=== PATIENT | female | born 1960 | race African-American/Black ===

== ENCOUNTER → 2016-07-03 | Outpatient (CLI) | payer MEDICARE, OTHER ==
[2015-08-26 11:00] VITALS: BP 118/63
[~2016-07-03] MED LIST: ASPI-482 PO; ATOR40TA59 PO; GABA600T PO; OXYC-323 PO; SUCR1TAB29 PO; TRAZ50TA15 PO
[2016-07-03 10:52] LABS: CHOLESTEROL/HDL RATIO 4.2
== END | disposition home or self-care (01) ==
LOC: LAB 09:53
PROVIDERS: ATTEND Internal Medicine Cardiovascular Disease
DX: E78.5 Hyperlipidemia, unspecified (principal)
CPT/HCPCS: 36415; 80061

== ENCOUNTER → 2016-11-03 | Outpatient (CLI) | payer MEDICARE, OTHER ==
[2015-08-26 11:00] VITALS: BP 118/63
[~2016-11-03] MED LIST changes: +REGADENOSON 0.4 MG/5 ML DISP.SYRIN. IV ONE; -SUCR1TAB29 PO; +SUCR1TAB35 PO
--- NOTE | 2016-11-03 12:43 | RAD ---
APPROVED REPORT Test Type: Pharmacological Stress Nurse/Tech: Ana Lilia Zuñiga R.N. Test Indications: neurocardiogenic syncope Cardiac History: hypotension, pacemaker Medications: See Electronic Medical Record Medical History: See Electronic Medical Record Resting ECG: NSR Resting Heart Rate: 64 bpm Resting Blood Pressure: 121/69mmHg Pretest Chest Pain: No chest pain Nurse/Tech Notes S1S2, lungs sound clear Consent: The procedure was explained to the patient in lay terms. Informed consent was witnessed. Marcin eout was entered into [facility]. History and Stress Test performed by Ana Lilia Zuñiga R.N. Pharm. Details Pharmacologic stress testing was performed using 0.4mg per 5ml of regadenoson given intravenously ove r 7-10 seconds. Stress Symptoms Dyspnea POST EXERCISE Reason for Termination: Infusion complete Max HR: 135 bpm Max Blood Pressure: 119/72mmHg Blood Pressure response to exercise: Normal blood pressure response during stress. Chest Pain: No. Arrhythmia: No. ST Change: No. INTERPRETATION Stress EKG Conclusion: Baseline EKG showed sinus rhythm. No ischemic changes at peak stress. No arr hythmias. Imaging Protocol IMAGE PROTOCOL: Rest Tc-99m/stress Tc-99m 1 day Rest: Stress: Viability: Radiopharm.Tc99m RirpuwjqsQd80r Sestamibi Dose11.1mCi 33.4mCi Duration 15min. 10min. Img Date 11/03/2016 11/03/2016 Inj-Img Ogle26jma. 60min. Rest Admin Site:IV - Right AntecubitalAdministrator:RT Tirso (R)(N) Stress Admin Site: IV - Right AntecubitalAdministrator: GARTH Manning STRESS DATA End Diast. Vol.63.0mlAv. Heart Rate79.0bpm End Syst. Vol.13.0mlCO Index BSA4.0L/min Myocardial Imig717.0gEject. Cefqwgux27.0% Stress Rates Pk. Fill Rate4.64EDV/secLVtime Pk. Fill 220.24msec Pk. Empty Rate5.21ESV/secLVtime Pk. Zbgsa668.89msec 04/18 Pk. Fill1.20EDV/sec Stress Scores Regional WT0.00Summed WT2.00 Regional WM0.00Summed WM3.00 Study quality was good. Left Ventricular size was Normal at Rest and Stress. Lung uptake was Normal. Left Ventricular ejection fraction is 79%. The rest and stress images show normal perfusion, normal contraction and thickening. LV Perf. Quant 17 Seg. SSS0.00 17 Seg. SRS0.00 17 Seg. SDS0.00 Stress Defect Extent (% LAD)0.00Rest Defect Extent (% LAD)0.00Rev. Defect Extent (% LAD)0.00 Stress Defect Extent (% LCX) 0.00Rest Defect Extent (% LCX)0.00Rev. Defect Extent (% LCX)0.00 Stress Defect Extent (% RCA)0.00Rest Defect Extent (% RCA)0.00Rev. Defect Extent (% RCA)0.00 Stress Defect Extent (% POLA)0.00Rest Defect Extent (% POLA)0.00Rev. Defect Extent (% POLA)0.00 Conclusion 1. Regadenoson cardioisotope stress test did not show any evidence of ischemia or infarct. 2. Normal left ventricular systolic function with ejection fraction calculated at 79%. 3. Low risk for cardiac events.
== END | disposition home or self-care (01) ==
LOC: NM 08:36
PROVIDERS: ATTEND Internal Medicine Cardiovascular Disease
DX: R55 Syncope and collapse (principal)
CPT/HCPCS: 78452; 93017; 96374; 96375; 96376; A9500; J2785

== ENCOUNTER 2017-03-27 21:30 | Emergency (ER) | payer MEDICARE, OTHER ==
[~2017-03-27 21:30] MED LIST changes: -REGADENOSON 0.4 MG/5 ML DISP.SYRIN. IV ONE
--- NOTE | 2017-03-27 22:57 | EKG ---
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
[2017-03-27] MEDS ORDERED: IV NORMAL SALINE 1000ML BAG 1,000 ML IV ONE (23:00)
[2017-03-27 23:18] LABS: BASO % 1 % (0-3); EOS % 2 % (0-3); HEMATOCRIT 44.3 % (36.0-47.0); HEMOGLOBIN 14.4 g/dL (12.0-15.5); LYMPH # 3.1 x10^3/uL (1.0-4.8); LYMPH % 42 % (24-48); MEAN CORPUSCULAR HEMOGLOBIN 29 pg (25-35); MEAN CORPUSCULAR HGB CONC 33 g/dL (31-37); MEAN CORPUSCULAR VOLUME 87 fL (79-100); MONO % 8 % (0-9); NEUT % 48 % (31-73); PLATELET COUNT 221 x10^3/uL (140-400); RED BLOOD COUNT 5.07 x10^6/uL (3.50-5.40); RED CELL DISTRIBUTION WIDTH 14.7 % (11.5-14.5); WHITE BLOOD COUNT 7.5 x10^3/uL (4.0-11.0)
[2017-03-27 23:30] LABS: CALCIUM 8.7 mg/dL (8.5-10.1); CREATININE 0.8 mg/dL (0.6-1.0); GFR 89.1; POTASSIUM 4.4 mmol/L (3.5-5.1)
[2017-03-27 23:36] LABS: ALBUMIN 3.7 g/dL (3.4-5.0); ALBUMIN/GLOBULIN RATIO 1.1 (1.0-1.7); TOTAL BILIRUBIN 0.2 mg/dL (0.2-1.0); TOTAL PROTEIN 7.1 g/dL (6.4-8.2)
[2017-03-28 00:01] LABS: BILIRUBIN,URINE NEGATIVE (NEG); GLUCOSE,URINE NEGATIVE (NEG); NITRITE,URINE NEGATIVE (NEG); PH,URINE 6.5; PROTEIN,URINE NEGATIVE (NEG-TRACE); UROBILINOGEN,URINE 0.2 mg/dL (0.2 mg/dL)
[2017-03-28 00:15] LABS: RBC,URINE OCC /HPF (0-2)
[2017-03-28 00:16] LABS: BACTERIA,URINE MANY /HPF (0-FEW); SQUAMOUS EPITHELIAL CELL,UR FEW /LPF; WBC,URINE 20-40 /HPF (0-4)
[2017-03-28 01:23] VITALS: BP 164/131
[2017-03-28] MEDS ORDERED: CIPR250T PO ×2 (01:29→01:34)
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
== END 2017-03-28 01:43 | disposition home or self-care (01) ==
LOC: ER 21:30
DX: N30.00 Acute cystitis without hematuria (principal); R42 Dizziness and giddiness; Z95.0 Presence of cardiac pacemaker; Z88.8 Allergy status to other drugs, medicaments and biological substances
CPT/HCPCS: 36415; 80053; 81001; 82550; 83735; 83880; 84443; 84484; 85025; 87086; 93005; 96360; 99285; J7030

== ENCOUNTER → 2017-08-09 | Outpatient (CLI) | payer MEDICARE, OTHER | END | disposition home or self-care (01) | LOC: ECHO 09:40 | DX: R55 Syncope and collapse (principal); E78.5 Hyperlipidemia, unspecified; G43.909 Migraine, unspecified, not intractable, without status migrainosus | CPT/HCPCS: 93306 ==

== ENCOUNTER 2019-05-08 18:08 | Observation (INO) | payer MEDICARE, MEDICAID ==
[~2019-05-08] VITALS: Ht 172.7 cm; Wt 101.8 kg
[~2019-05-08 18:08] MED LIST changes: +CIPR250T PO; -OXYC-323 PO; +OXYC1TAB15 PO; +TRAZ-118 PO; -TRAZ50TA15 PO
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
[2019-05-08 19:14] LABS: BASO % 1 % (0-3); EOS # 0.2 x10^3/uL (0.0-0.7); EOS % 3 % (0-3); HEMATOCRIT 40.9 % (36.0-47.0); HEMOGLOBIN 13.4 g/dL (12.0-15.5); LYMPH # 3.4 x10^3/uL (1.0-4.8); LYMPH % 59 % (24-48); MEAN CORPUSCULAR HEMOGLOBIN 29 pg (25-35); MEAN CORPUSCULAR HGB CONC 33 g/dL (31-37); MEAN CORPUSCULAR VOLUME 88 fL (79-100); MONO # 0.5 x10^3/uL (0.0-1.1); MONO % 9 % (0-9); NEUT # 1.7 x10^3/uL (1.8-7.7); NEUT % 29 % (31-73); PLATELET COUNT 207 x10^3/uL (140-400); RED BLOOD COUNT 4.66 x10^6/uL (3.50-5.40); RED CELL DISTRIBUTION WIDTH 14.7 % (11.5-14.5); WHITE BLOOD COUNT 5.8 x10^3/uL (4.0-11.0)
[2019-05-08] MEDS ORDERED: ASPIRIN CHEWABLE 81 MG TABLET. PO ONE (19:15)
[2019-05-08] MEDS: NITROGLYCERIN SUBLINGUAL 0.4 MG BOTTLE OF 25. SL PRN ×3 (19:27→19:49)
[2019-05-08 19:36] LABS: CALCIUM 8.9 mg/dL (8.5-10.1); CREATININE 0.9 mg/dL (0.6-1.0); GFR 77.3; POTASSIUM 3.7 mmol/L (3.5-5.1)
--- NOTE | 2019-05-08 19:36 | RAD ---
EXAM: AP View of the chest DATE: 05/08/2019 7:07 PM INDICATION: Chest pain COMPARISON: No Prior FINDINGS: The heart is not enlarged. Mediastinal and hilar contours are normal. No focal parenchymal airspace opacity. No pleural effusion or pneumothorax. Cardiac generator pack obscures a portion of the right chest with leads projecting over the right atrium and ventricle. IMPRESSION: 1. No radiographic evidence for acute cardiopulmonary process. Electronically signed by: Rizwan Smith MD (05/08/2019 7:33 PM) [facility]
[2019-05-08 19:42] LABS: ALBUMIN 3.6 g/dL (3.4-5.0); ALBUMIN/GLOBULIN RATIO 1.1 (1.0-1.7); MAGNESIUM 1.9 mg/dL (1.8-2.4); TOTAL BILIRUBIN 0.2 mg/dL (0.2-1.0)
[2019-05-08 19:57] LABS: BILIRUBIN,URINE NEGATIVE (NEG); CLARITY,URINE CLEAR; COLOR,URINE YELLOW; NITRITE,URINE NEGATIVE (NEG); PROTEIN,URINE NEGATIVE (NEG-TRACE)
[2019-05-08 20:03] LABS: BACTERIA,URINE 0 /HPF (0-FEW); RBC,URINE 0 /HPF (0-2); SQUAMOUS EPITHELIAL CELL,UR MOD /LPF
[2019-05-08] MEDS ORDERED: NITROGLYCERIN OINT 1 GM PACKET. TP ONE (21:00)
[2019-05-08] MEDS ORDERED: KETOROLAC 30 MG/ML VIAL. IVP ONE (21:15)
[2019-05-08] MEDS ORDERED: ACETAMINOPHEN 325 MG TABLET. PO PRN (21:30)
[2019-05-08] MEDS ORDERED: ONDANSETRON PF 4 MG/2 ML VIAL. IV PRN ×2 (21:30→22:00)
[2019-05-08] MEDS ORDERED: MORPHINE SULFATE 2 MG/ML VIAL. IV PRN (21:30)
[2019-05-08] MEDS ORDERED: traZODone 50 MG TABLET. PO PRN (22:00)
[2019-05-08] MEDS ORDERED: SUCRALFATE 1 GM TABLET. PO PRN (22:00)
[2019-05-08] MEDS ORDERED: NORT25CA PO (22:01)
[2019-05-08] MEDS ORDERED: BUPR150T6 PO (22:01)
[2019-05-08] MEDS ORDERED: OMEP40CA45 PO (22:01)
[2019-05-08] MEDS ORDERED: TOPI50TA8 PO (22:01)
[2019-05-08] MEDS ORDERED: METF750T39 PO (22:01)
[2019-05-08] MEDS ORDERED: METO25TA4 PO (22:01)
[2019-05-08] MEDS ORDERED: POTASSIUM CHLORIDE 20 MEQ TABLET.ER. PO ONE (22:15)
[2019-05-08] MEDS ORDERED: GABAPENTIN 300 MG CAPSULE. PO SCH (22:15)
[2019-05-08] MEDS ORDERED: DEXTROSE 50% 25 GM / 50ML DISP.SYRIN. IV PRN (22:15)
[2019-05-08] MEDS ORDERED: IV DEXTROSE 5% 250 ML BAG. IV PRN (22:15)
[2019-05-08] MEDS ORDERED: ATORVASTATIN CALCIUM 40 MG TABLET. PO SCH (22:15)
[2019-05-08] MEDS ORDERED: NORTRIPTYLINE 25 MG CAPSULE PO SCH (22:15)
[2019-05-08] MEDS: METOPROLOL TART IMMED RELEASE 25 MG TABLET. PO SCH (22:15)
[2019-05-08] MEDS ORDERED: MAGNESIUM SULFATE 1GM 100 ML IV ONE (22:30)
[2019-05-08 22:59] VITALS: BP 154/89
[2019-05-09] MEDS: ACETAMINOPHEN 325 MG TABLET. PO PRN ×2 (02:55→10:06)
[2019-05-09 03:09] VITALS: BP 140/80
--- NOTE | 2019-05-09 04:30 | NUR ---
patient arrived to unit at approx 2250 accompanied by oil well fishing tool technician and pt daughter. VS stable, Assessment complete. Patient resting comfortably on RA. When reviewing patient meds pt stated that she only takes the Topamax as needed, metoprolol once a day instead of twice, and doesn't take atorvastatin anymore. Instead of atorvastatin she takes rosuvastatin. Will confirm with physician in AM. Pt refused flu shot. Patient state that she fell approx 5 days ago at home. Encouraged patient to call for assistance before ambulating, call light in reach, bed in low locked position. Will continue to monitor.
[2019-05-09 05:04] LABS: BASO % 0 % (0-3); EOS # 0.2 x10^3/uL (0.0-0.7); EOS % 4 % (0-3); HEMATOCRIT 40.1 % (36.0-47.0); HEMOGLOBIN 13.1 g/dL (12.0-15.5); LYMPH # 2.8 x10^3/uL (1.0-4.8); LYMPH % 55 % (24-48); MEAN CORPUSCULAR HEMOGLOBIN 29 pg (25-35); MEAN CORPUSCULAR HGB CONC 33 g/dL (31-37); MEAN CORPUSCULAR VOLUME 88 fL (79-100); MONO # 0.5 x10^3/uL (0.0-1.1); MONO % 11 % (0-9); NEUT # 1.5 x10^3/uL (1.8-7.7); NEUT % 30 % (31-73); PLATELET COUNT 201 x10^3/uL (140-400); RED BLOOD COUNT 4.57 x10^6/uL (3.50-5.40); RED CELL DISTRIBUTION WIDTH 14.5 % (11.5-14.5); WHITE BLOOD COUNT 5.1 x10^3/uL (4.0-11.0)
[2019-05-09 05:37] LABS: ALBUMIN 3.4 g/dL (3.4-5.0); ALBUMIN/GLOBULIN RATIO 1.2 (1.0-1.7); CALCIUM 8.8 mg/dL (8.5-10.1); CREATININE 0.8 mg/dL (0.6-1.0); GFR 88.5; POTASSIUM 4.5 mmol/L (3.5-5.1); TOTAL BILIRUBIN 0.3 mg/dL (0.2-1.0); TOTAL PROTEIN 6.3 g/dL (6.4-8.2)
[2019-05-09 07:00] VITALS: BP 120/86
--- NOTE | 2019-05-09 07:14 | EKG ---
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
[2019-05-09] MEDS ORDERED: PANTOPRAZOLE 40 MG TABLET.DR. PO SCH (07:30)
[2019-05-09] MEDS: INSULIN LISPRO 300 UNITS/3 ML VIAL. SQ SCH ×2 (07:30→11:30)
[2019-05-09] MEDS ORDERED: ASPIRIN ENTERIC COATED 81 MG TABLET.DR. PO SCH (08:00)
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
[2019-05-09] MEDS: TOPIRAMATE 25 MG TABLET. PO SCH ×2 (08:19→09:00)
[2019-05-09 08:39] LABS: CHOLESTEROL/HDL RATIO 4.5
[2019-05-09] MEDS ORDERED: buPROPion XL 150 MG TAB.ER.24H. PO SCH (09:00)
[2019-05-09 11:00] VITALS: BP 143/89
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
[2019-05-09] MEDS ORDERED: LIDOCAINE (700MG/PATCH) PATCH. TD SCH (12:00)
[2019-05-09 12:12] VITALS: BP 143/89
[2019-05-09] MEDS: METOPROLOL TART IMMED RELEASE 25 MG TABLET. PO SCH (12:12)
--- NOTE | 2019-05-09 15:02 | NUR ---
Discharge Note: JHONY KHAN Discharge instructions and discharge home medications reviewed with Patient and a copy given. All questions have been answered and understanding verbalized. The following instructions and handouts were given: Stress test instructions Discontinued lines and drains: intact. 22 R FA Patient discharged to Home with self care
--- NOTE | 2019-05-09 19:05 | DS ---
DATE OF DISCHARGE: 05/09/2019 ADMISSION DIAGNOSIS: Chest pain. DISCHARGE DIAGNOSES: Atypical chest pain, previous history of coronary artery disease and permanent pacemaker 2 years ago. HOSPITAL COURSE: The patient is a pleasant 58-year-old female who presented with chest pain. She was admitted. We checked serial enzymes, serial EKGs, consulted Cardiology. Today, I saw her and examined her. Her heart tones were normal. Lungs were clear. She was alert and oriented. Extremities have no edema. We plan to discharge if okay with Cardiology. DISPOSITION: Home. ACTIVITY: As tolerated. DIET: Cardiac. MEDICATIONS: Please see the MRAD. TOTAL TIME: 34 minutes. TONY MALDONADO DO DR: CLIFTON/severo JOB#: [id number] / [id number]
[2019-05-09] MEDS ORDERED: PATCH REMOVAL. MC SCH (21:00)
== END 2019-05-09 15:04 | disposition home or self-care (01) ==
LOC: ER 18:08 → 2 NORTH 22:01
PROVIDERS: ADMIT Internal Medicine; ATTEND Internal Medicine
DX: R55 Syncope and collapse (principal); R00.1 Bradycardia, unspecified; I20.0 Unstable angina; R07.89 Other chest pain; I95.9 Hypotension, unspecified; Z95.0 Presence of cardiac pacemaker; Z86.711 Personal history of pulmonary embolism
CPT/HCPCS: 36415; 71045; 80053; 80061; 81001; 82962; 83735; 83880; 84484; 85025; 87086; 93005; 96365; 96375; 99284; G0378; J1815; J1885; J3475; G0379

== ENCOUNTER → 2019-05-13 | Outpatient (CLI) | payer MEDICARE, MEDICAID ==
[2019-05-09 12:12] VITALS: BP 143/89
[~2019-05-13] MED LIST changes: +BUPR150T6 PO; +METF750T39 PO; +METO25TA4 PO; +NORT25CA PO; +OMEP40CA45 PO; +TOPI50TA8 PO
--- NOTE | 2019-05-13 11:37 | RAD ---
MR#: [id number] Date of Study: 05/13/2019 Ordering Physician: HUGO PEREZ, Referring Physician: NURIA SERVIN Tech: BILLY Hagen, ARRT (R) (N) APPROVED REPORT Test Type: Exercise Stress Nurse/Tech: ROBERT Delgado Test Indications: chest pain Cardiac History: chest pain, PPM, syncope, HTN , See Electronic Medical Record Medications: See Electronic Medical Record Medical History: See Electronic Medical Record Resting ECG: AV paced Resting Heart Rate: 76 bpm Resting Blood Pressure: 114/74mmHg Pretest Chest Pain: yes Nurse/Tech Notes PPM noted on right chest, AV paced per monitor, c/o chest pressure that radiates down her left arm an d to her left shoulder blade, pt states this has been going on for quite some time, lungs CTA. Consent: The procedure was explained to the patient in lay terms. Informed consent was witnessed. Marcin eout was entered into [employer]. History and Stress Test performed by RT Amanda (Yuliya) (N) Stress Symptoms Pt complained of chest pressure and SOA, in addition to fatigue.No chest pain or symptoms. POST EXERCISE Reason for Termination: Reached target heart rate Target HR: 136 Max HR: 139 bpm Exercise duration: 5:29 min:sec, 2 Stage Exercise capacity: 5.7METs Max Blood Pressure: 154/82mmHg Blood Pressure response to exercise: Normal blood pressure response during stress. Heart Rate response to exercise: Normal heart rate response during stress Chest Pain: Yes. essentially unchanged pain description Arrhythmia: No. ST Change: No. difficult to interpret due to artifact INTERPRETATION Stress EKG Conclusion: AV paced. Non-specific st/t changes. Non-diagnostic due to pacing. Imaging Protocol IMAGE PROTOCOL: Rest Tc-99m/stress Tc-99m 1 day Rest: Stress: Viability: Radiopharm.Tc99m GsmkxhgjhJh06m Sestamibi Oarc90iRn 33mCi Img Date 05/13/2019 05/13/2019 Inj-Img Dbps33mhp. 60min. Rest Admin Site:IV - Right AntecubitalAdministrator:Mani Hart, RT (R)(N) Stress Admin Site: IV - Right AntecubitalAdministrator: RT Amanda (R)(N) STRESS DATA End Diast. Vol.39.0mlAv. Heart Rate87.0bpm End Syst. Vol.3.0mlCO Index BSA3.2L/min Myocardial Mass90.0gEject. Fxcycujd40.0% Stress Rates Pk. Fill Rate1.27EDV/secLVtime Pk. Fill 129.06msec Pk. Empty Rate4.18ESV/secLVtime Pk. Klxhu687.15msec 04/18 Pk. Fill1.33EDV/sec Stress Scores Regional WT1.00Summed WT2.00 Regional WM0.00Summed WM1.00 The rest and stress images show normal perfusion, normal contraction and thickening. LV Perf. Quant 17 Seg. SSS0.00 17 Seg. SRS0.00 17 Seg. SDS0.00 Stress Defect Extent (% LAD)0.00Rest Defect Extent (% LAD)0.00Rev. Defect Extent (% LAD)0.00 Stress Defect Extent (% LCX) 0.00Rest Defect Extent (% LCX)0.00Rev. Defect Extent (% LCX)0.00 Stress Defect Extent (% RCA)0.00Rest Defect Extent (% RCA)0.00Rev. Defect Extent (% RCA)0.00 Stress Defect Extent (% POLA)0.00Rest Defect Extent (% POLA)0.00Rev. Defect Extent (% POLA)0.00 Other Information Quality:Average Risk Assessment: Low Risk Conclusion 1. No evidence of EKG changes with stress testing. 2. Normal perfusion at stress/rest. 3. Low risk study. 4. EF > 60%. Signed by : Phillip He, Electronically Approved : 05/13/2019 11:37:13
== END | disposition home or self-care (01) ==
LOC: NM 08:08
PROVIDERS: ATTEND Internal Medicine Cardiovascular Disease
DX: R06.02 Shortness of breath (principal); R53.83 Other fatigue; R07.9 Chest pain, unspecified; I10 Essential (primary) hypertension; Z95.0 Presence of cardiac pacemaker
CPT/HCPCS: 78452; 93017; A9500

== ENCOUNTER → 2020-02-12 | Outpatient (CLI) | payer OTHER, MEDICAID ==
--- NOTE | 2020-02-12 15:39 | CARD ---
MR#: [id number] Date of Study: 02/12/2020 Ordering Physician: HUGO SNYDER, Referring Physician: HUGO SNYDER, Tech: Carlene Rhaman APPROVED REPORT EXAM: Two-dimensional and M-mode echocardiogram with Doppler and color Doppler. Other Information Quality : AverageHR: 87bpm INDICATION Syncope RISK FACTORS Hyperlipidemia Diabetes 2D DIMENSIONS RVDd3.2 (2.9-3.5cm)Left Atrium(2D)3.0 (1.6-4.0cm) IVSd1.0 (0.7-1.1cm)Aortic Root(2D)3.3 (2.0-3.7cm) LVDd4.0 (3.9-5.9cm)LVOT Diameter2.1 (1.8-2.4cm) PWd1.2 (0.7-1.1cm)LVDs2.5 (2.5-4.0cm) FS (%) 37.0 %SV46.2 ml LVEF(%)67.5 (>50%) Aortic Valve AoV Peak Foreign.84.8cm/sAoV VTI16.0cm AO Peak GR.2.9mmHgLVOT Peak Foreign.71.4cm/s LVOT VTI 14.76cmAO Mean GR.2mmHg ROGER (VMAX)2.52zw5YEK (VTI)3.31cm2 Mitral Valve MV E Ildkpzmg66.2cm/sMV DECEL FAGW250gw MV A Xpiwlntu56.0cm/sMV XYI30vd E/A Ratio0.9MVA (PHT)2.41cm2 TDI E/Lateral E'6.1E/Medial E'7.3 Pulmonary Valve PV Peak Phoexxwh66.4cm/sPV Peak Grad.2mmHg Tricuspid Valve TR P. Lfbrwnbt189xd/sRAP OFEJLUZM0iuFa TR Peak Gr.89qsMeLUAU85uyAl Pulmonary Vein S1 Yndsqfqe70.6cm/sD2 Spionzud38.6cm/s PVa phcbeodw024eome LEFT VENTRICLE The left ventricle is normal size. There is normal left ventricular wall thickness. The left ventricu lar systolic function is normal. The Ejection Fraction is 60-65%. There is normal LV segmental wall m otion. Transmitral Doppler flow pattern is Grade I-abnormal relaxation pattern. RIGHT VENTRICLE The right ventricle is borderline dilated. There is normal right ventricular wall thickness. The righ t ventricular systolic function is normal. There is a pacemaker lead in the right ventricle. ATRIA The left atrium size is normal. There is a pacemaker lead seen in the right atrium. The right atrium size is normal. The interatrial septum is intact with no evidence for an atrial septal defect or mackay nt foramen ovale as noted on 2-D or Doppler imaging. AORTIC VALVE The aortic valve is thickened but opens well. Doppler and Color Flow revealed no significant aortic r egurgitation. There is no significant aortic valvular stenosis. Calculated aortic valve area is 3.35 cm2 with maximum pressure gradient of 4 mmHg and mean pressure gradient of 3 mmHg. MITRAL VALVE The mitral valve is normal in structure and function. There is no evidence of mitral valve prolapse. There is no mitral valve stenosis. Doppler and Color-flow revealed trace mitral regurgitation. TRICUSPID VALVE The tricuspid valve is normal in structure and function. Doppler and Color Flow revealed trace tricus pid regurgitation with an estimated PAP of 24 mmHg. There is no tricuspid valve stenosis. PULMONIC VALVE The pulmonic valve is not well visualized. Doppler and Color Flow revealed trace pulmonic valvular re gurgitation. GREAT VESSELS The aortic root is normal in size. The IVC is normal in size and collapses >50% with inspiration. PERICARDIAL EFFUSION There is no evidence of significant pericardial effusion. Critical Notification Critical Value: No <Conclusion> The left ventricular systolic function is normal. The Ejection Fraction is 60-65%. There is normal LV segmental wall motion. Transmitral Doppler flow pattern is Grade I-abnormal relaxation pattern. Pacer lead noted RA/RV. Trace mitral regurgitation. Trace tricuspid regurgitation with an estimated PAP of 24 mmHg. There is no evidence of significant pericardial effusion. Signed by : Hugo Snyder, Electronically Approved : 02/12/2020 15:39:08
== END ==
LOC: ECHO 09:07
PROVIDERS: ATTEND Internal Medicine Cardiovascular Disease
DX: R55 Syncope and collapse (principal); Z95.0 Presence of cardiac pacemaker
CPT/HCPCS: 93306

== ENCOUNTER 2020-06-13 20:20 | Emergency (ER) | payer OTHER, MEDICAID ==
[~2020-06-13] VITALS: Ht 170.2 cm; Wt 104.5 kg
[~2020-06-13 20:20] MED LIST changes: +BUPR150T21 PO; -BUPR150T6 PO
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
[2020-06-13 21:06] LABS: BASO % 1 % (0-3); EOS # 0.1 x10^3/uL (0.0-0.7); EOS % 2 % (0-3); HEMATOCRIT 45.1 % (36.0-47.0); HEMOGLOBIN 14.8 g/dL (12.0-15.5); LYMPH # 3.6 x10^3/uL (1.0-4.8); LYMPH % 51 % (24-48); MEAN CORPUSCULAR HEMOGLOBIN 29 pg (25-35); MEAN CORPUSCULAR HGB CONC 33 g/dL (31-37); MEAN CORPUSCULAR VOLUME 88 fL (79-100); MONO # 0.5 x10^3/uL (0.0-1.1); MONO % 7 % (0-9); NEUT # 2.7 x10^3/uL (1.8-7.7); NEUT % 39 % (31-73); PLATELET COUNT 207 x10^3/uL (140-400); RED BLOOD COUNT 5.14 x10^6/uL (3.50-5.40); RED CELL DISTRIBUTION WIDTH 14.1 % (11.5-14.5); WHITE BLOOD COUNT 7.1 x10^3/uL (4.0-11.0)
[2020-06-13 21:21] LABS: CALCIUM 8.8 mg/dL (8.5-10.1); CREATININE 1.2 mg/dL (0.6-1.0); GFR 55.3; POTASSIUM 4.7 mmol/L (3.5-5.1)
[2020-06-13] MEDS ORDERED: CONTRAST GIVEN. MC PRN (21:45)
[2020-06-13 21:48] LABS: PLT ESTIMATE ADEQUATE (ADEQUATE)
[2020-06-13 21:49] LABS: BURR CELLS FEW; OVALOCYTES OCC; TEAR DROP CELLS FEW
[2020-06-13 21:50] LABS: POIKILOCYTOSIS SLIGHT
--- NOTE | 2020-06-13 21:55 | RAD ---
Exam: CT Neck with contrast INDICATION: Neck swelling TECHNIQUE: Sequential axial images through the neck obtained following the administration of 60 mL of Omni 300 IV contrast. Sagittal and coronal reformatted images were reconstructed from the axial data and reviewed. Comparisons: None FINDINGS: Visualized intracranial structures are unremarkable. Globes intradural contents are normal. Visualize d portions of the paranasal sinuses and mastoid air cells are well-pneumatized. Cervical vasculature is patent. Nasopharynx, oropharynx, hypopharynx and larynx are unremarkable. Thyroid and salivary glands are within normal limits. No enlarged cervical lymph nodes are identified. A 6 cm nodule at the right upper lobe series 2 image 22. No suspicious osseous lesions or acute fractures. IMPRESSION: 1. No acute process identified within the neck. 2. A 6 cm nodule at the right upper lobe. 6 month follow-up chest CT is recommended to reassess. Exposure: One or more of the following in the visualized dose reduction techniques were utilized for this examination: 1. Automated exposure control 2. Adjustment of the MA and/or KV according to patient size 3. Use of iterative of reconstructive technique Electronically signed by: Layton Hodges MD (06/13/2020 9:52 PM) [facility]
[2020-06-13] MEDS ORDERED: INSULIN REGULAR 100 UNIT/ML 3ML VIAL. IV ONE (22:00)
[2020-06-13] MEDS ORDERED: IV NORMAL SALINE 1000ML BAG 1,000 ML IV ONE ×2 (22:00→23:00)
[2020-06-13] MEDS ORDERED: IOHEXOL 300 MG/ML 100ML VIAL. IV ONE (22:00)
[2020-06-13 23:29] VITALS: BP 154/76
--- NOTE | 2020-06-14 01:31 | EKG ---
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
[2020-06-16] MEDS ORDERED: TOPI50TA38 PO (17:03)
[2020-06-16] MEDS ORDERED: METO-239 PO (17:03)
[2020-06-16] MEDS ORDERED: ROSU20TA28 PO (17:03)
[2020-06-16] MEDS ORDERED: NORT25CA PO (17:03)
[2020-06-17] MEDS ORDERED: METF750T PO (09:44)
[2020-06-17] MEDS ORDERED: AMOX1TAB61 PO (15:33)
[2020-06-17] MEDS ORDERED: LINA5TAB PO (15:33)
--- NOTE | 2020-06-22 11:19 | EKG ---
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
== END 2020-06-13 23:58 | disposition home or self-care (01) ==
LOC: ER 20:20
DX: R60.0 Localized edema (principal); R73.9 Hyperglycemia, unspecified; M25.512 Pain in left shoulder; R91.1 Solitary pulmonary nodule; M54.2 Cervicalgia; I95.9 Hypotension, unspecified; Z95.0 Presence of cardiac pacemaker; Z98.890 Other specified postprocedural states; Z88.8 Allergy status to other drugs, medicaments and biological substances
CPT/HCPCS: 36415; 70491; 80048; 82962; 85025; 93005; 96361; 96374; 99285; J1815; J7030; Q9967

== ENCOUNTER → 2020-07-20 | Day surgery (SDC) | payer OTHER, MEDICAID ==
[~2020-07-20] MED LIST changes: +AMOX1TAB61 PO; +IV RINGERS,LACTATED 1000ML 1,000 ML IV SCH; +LIDOCAINE 2% PF 5 ML VIAL. ONE; +LINA5TAB PO; +METF750T PO; +METO-239 PO; +PROPOFOL 10 MG/ML (20ML) VIAL. IV ONE; +ROSU20TA28 PO; +TOPI50TA38 PO
[2020-07-20 14:30] VITALS: BP 143/94
== END | disposition home or self-care (01) ==
LOC: ENDOS 12:32
PROVIDERS: ATTEND Internal Medicine Gastroenterology
DX: Z12.11 Encounter for screening for malignant neoplasm of colon (principal); K64.0 First degree hemorrhoids; R10.13 Epigastric pain; K29.50 Unspecified chronic gastritis without bleeding; R93.3 Abnormal findings on diagnostic imaging of other parts of digestive tract; E66.9 Obesity, unspecified; E11.9 Type 2 diabetes mellitus without complications; F32.9 Major depressive disorder, single episode, unspecified; F41.9 Anxiety disorder, unspecified; Z86.010 Personal history of colon polyps; Z90.710 Acquired absence of both cervix and uterus; Z98.890 Other specified postprocedural states; Z79.899 Other long term (current) drug therapy; Z79.82 Long term (current) use of aspirin; Z79.84 Long term (current) use of oral hypoglycemic drugs; Z88.8 Allergy status to other drugs, medicaments and biological substances; Z20.822 Contact with and (suspected) exposure to COVID-19
CPT/HCPCS: 43235; 87426; G0105; J2704; 45378

== ENCOUNTER 2021-07-17 11:25 | Emergency (ER) | payer OTHER, MEDICAID ==
[~2021-07-17] VITALS: Ht 170.2 cm; Wt 98.0 kg
[~2021-07-17 11:25] MED LIST changes: -IV RINGERS,LACTATED 1000ML 1,000 ML IV SCH; -LIDOCAINE 2% PF 5 ML VIAL. ONE; -OMEP40CA45 PO; +OMEP40CA7 PO; -PROPOFOL 10 MG/ML (20ML) VIAL. IV ONE
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
[2021-07-17] MEDS ORDERED: IV NORMAL SALINE 500ML BAG 500 ML IV SCH (12:00)
[2021-07-17 12:03] LABS: BASO # 0.1 x10^3/uL (0.0-0.2); BASO % 1 % (0-3); EOS # 0.2 x10^3/uL (0.0-0.7); EOS % 2 % (0-3); HEMATOCRIT 46.2 % (36.0-47.0); HEMOGLOBIN 15.2 g/dL (12.0-15.5); LYMPH # 3.2 x10^3/uL (1.0-4.8); LYMPH % 34 % (24-48); MEAN CORPUSCULAR HEMOGLOBIN 30 pg (25-35); MEAN CORPUSCULAR HGB CONC 33 g/dL (31-37); MEAN CORPUSCULAR VOLUME 90 fL (79-100); MONO % 10 % (0-9); NEUT # 5.2 x10^3/uL (1.8-7.7); NEUT % 54 % (31-73); PLATELET COUNT 214 x10^3/uL (140-400); RED BLOOD COUNT 5.12 x10^6/uL (3.50-5.40); RED CELL DISTRIBUTION WIDTH 13.5 % (11.5-14.5); WHITE BLOOD COUNT 9.5 x10^3/uL (4.0-11.0)
[2021-07-17 12:25] LABS: ALBUMIN 3.5 g/dL (3.4-5.0); CALCIUM 9.1 mg/dL (8.5-10.1); CREATININE 1.2 mg/dL (0.6-1.0); GFR 54.9; POTASSIUM 4.7 mmol/L (3.5-5.1); TOTAL BILIRUBIN 0.5 mg/dL (0.2-1.0); TOTAL PROTEIN 7.1 g/dL (6.4-8.2)
--- NOTE | 2021-07-17 12:29 | RAD ---
XR CHEST 1V Clinical History: Reason: syncope WEAK AND FATIGUE / Spl. Instructions: / History: Technique: AP view of the chest was obtained at 07/17/2021 12:01 PM. Comparison: June 16, 2020. Findings: The cardiomediastinal silhouette is normal. The pulmonary vasculature is normal. The lungs and pleura l margins are clear. There is a right-sided dual-lead pacemaker. Impression: No evidence of an acute cardiopulmonary process. Electronically signed by: Mando Yang III, MD (07/17/2021 12:26 PM) [facility]
[2021-07-17 13:41] LABS: BACTERIA,URINE 0 /HPF (0-FEW); RBC,URINE 0 /HPF (0-2)
[2021-07-17] MEDS ORDERED: INSULIN REGULAR 100 UNIT/ML 3ML VIAL. IV ONE (17:00)
[2021-07-17 17:36] VITALS: BP 139/82
[2021-07-17] MEDS ORDERED: CARBAMIDE PEROXIDE 6.5% OTIC SOLUTION 15ML BOTTLE. AU ONE (17:45)
--- NOTE | 2021-07-17 18:17 | EKG ---
[facility] [address] [place] [address] Test Date: 2021-07-17 Test Time: 11:34:50 Pat Name: JHONY KHAN Department: Room: Gender: F Edi Developer: : 1960 Requested By: MEL CARRENO Order Number: [id number] Reading MD: Wolf Snyder Measurements Intervals [place] Rate: 82 P: 71 [place]: 198 QRS: 11 QRSD: 80 T: 21 QT: 354 QTc: 416 Interpretive Statements ATRIAL-PACED RHYTHM Electronically Signed On 07-18-2021 9:06:18 CDT by Wolf Snyder
== END 2021-07-17 18:35 | disposition home or self-care (01) ==
LOC: ER 11:25
DX: R55 Syncope and collapse (principal); H93.8X3 Other specified disorders of ear, bilateral; E11.9 Type 2 diabetes mellitus without complications; Z95.0 Presence of cardiac pacemaker; Z88.8 Allergy status to other drugs, medicaments and biological substances
CPT/HCPCS: 36415; 71045; 80053; 81001; 82962; 84484; 85025; 93005; 96374; 99285; J1815